=== PATIENT | female | born 1985 | race Hispanic/Latino ===

== ENCOUNTER 2019-07-04 06:51 | Day surgery (SDC) | payer OTHER, SELFPAY ==
[2019-07-02 13:47] LABS: Absolute Lymphocytes (CBC) 2.7 K/uL (0.7-4.9); Basophils % 0.7 % (0-1.3); Hematocrit 38.2 % (36.0-45.0); Lymphocytes % 33.3 % (15.3-44.8); MPV 10.4 fL (7.6-11.3); RBC Red Blood Cell Count 4.26 M/uL (3.86-4.86)
[2019-07-02 13:55] LABS: BUN Blood Urea Nitrogen 8 mg/dL (7-18); Bicarbonate 28 mmol/L (21-32); Glucose Level 87 mg/dL (74-106); Potassium 3.8 mmol/L (3.5-5.1); Sodium Level 141 mmol/L (136-145)
[2019-07-02 14:01] LABS: Albumin 4.2 g/dL (3.4-5.0); Bilirubin Direct 0.2 mg/dL (0-0.2); Bilirubin Total 0.6 mg/dL (0.2-1.0); Protein, Total 7.4 g/dL (6.4-8.2)
[2019-07-04] MEDS ORDERED: ROCURONIUM 50 MG/5 ML VIAL IV ONE (07:03)
[2019-07-04] MEDS ORDERED: LIDOCAINE 2% MPF 5 ML VIAL ONE (07:03)
[2019-07-04] MEDS ORDERED: PROPOFOL 200 MG/20 ML VIAL IV ONE (07:03)
[2019-07-04] MEDS ORDERED: ONDANSETRON 4 MG/2 ML VIAL ONE ×2 (07:03→11:25)
[2019-07-04] MEDS ORDERED: Ringers Lactate 1,000 ML IV ONE ×2 (07:48→10:02)
[2019-07-04] MEDS ORDERED: CEFOXITIN/SWI 1gm 1 GM/10 ML SYR ONE (07:49)
[2019-07-04 07:57] LABS: Specific Gravity >= 1.030 (1.005-1.030)
[2019-07-04] MEDS ORDERED: FENTANYL CITR 100 MCG/2 ML ONE (08:29)
[2019-07-04] MEDS ORDERED: MIDAZOLAM HCL 2 MG/2 ML INJ ONE (08:30)
[2019-07-04] MEDS ORDERED: GLYCOPYRROLATE 0.2 MG/ML SYR ONE (09:17)
[2019-07-04] MEDS ORDERED: NEOSTIGMINE 1 MG/ML -10 ML VIAL ONE (09:18)
[2019-07-04] MEDS: HYDROMORPHONE HCL 1 MG/ML INJ ONE ×4 (09:52→10:10)
[2019-07-04] MEDS: MORPHINE 4 MG/ML SYR ONE ×3 (10:20→10:30)
--- NOTE | 2019-07-04 10:39 | OP ---
Date of Procedure: 07/04/2019 Surgeon: Michael Durant MD Electrocardiogram Technician: KEN Parker. Preoperative Diagnoses: Symptomatic cholelithiasis, umbilical hernia. Postoperative Diagnoses: Symptomatic cholelithiasis, umbilical hernia. Procedure: Laparoscopic cholecystectomy and repair of umbilical hernia. Estimated Blood Loss: Minimal. Specimens: Hernia sac and contents. Findings: As above. Anesthesia: General. Complications: None. Disposition: Patient tolerated the procedure in stable condition, taken to Recovery in good general condition. Procedure In Detail: The patient was brought to the OR and placed in supine position. General anest hesia begun. Patient was prepped and draped in the sterile fashion. Marcaine 0.5% was infiltrated l ocally. A 15-blade was used to make a 2 cm incision over the hernia which was infraumbilical midline . Subcu tissue divided. Hernia sac and contents identified, excised to the edge of the fascia. Kathy roximately, a 1.5 cm defect remained, #1 Vicryl stay suture was placed and then the peritoneal cavity entered. Pneumoperitoneum was established. Three 5 mm trocars placed, 1 in the epigastrium just to the right of midline and 2 in the right subcostal region. Laparoscopy revealed chronic inflammation of the gallbladder consistent with chronic cholecystitis. Fundus retracted superiorly. Infundibulum was identified and retracted inferolaterally. Cystic duct and cystic artery were clearly identified with blunt dissection. Clips placed. Both structures divided. Cautery was used to remove the gall bladder from the liver bed. Bleeding on the liver bed was controlled with cautery. Then, the gallbl adder retrieved through the umbilicus via an EndoCatch bag and wound in the right upper quadrant exam ined. No evidence of bleeding or bile leakage appreciated. Subsequently, all trocars were removed u nder direct vision. Stay sutures were tied to each other to close the hernia defect. Subcu wounds i rrigated, bleeding controlled with cautery. A 3-0 chromic used for subcutaneous tissue and closed th e skin. Sterile dressing was applied. The patient was awakened and taken to Recovery in good genera l condition. Discharge Note: Patient will go to Day Surgery and home when stable. Disposition: Home. Condition: Stable. Discharge Instructions: Resume home medications and diet. Activities as tolerated. No heavy liftin g. Remove outer dressing in 2 days. Shower. Keep wound clean and dry. Follow up in my office in 1 week. Call for appointment. Tylenol No. 3 one tablet p.o. q.4 p.r.n. pain. Incentive spirometry as ordered. Abdominal binder as ordered. LOLITA/MODL Voice ID: [id number] Report ID: [id number]
[2019-07-04] MEDS ORDERED: HYDROCODONE/APAP 7.5/325 MG TAB PO ONE (11:20)
[2019-07-04] MEDS ORDERED: HYDROCODONE/APAP 7.5/325 MG TAB ONE (11:22)
[2019-07-04] MEDS ORDERED: ONDANSETRON 4 MG/2 ML VIAL IV ONE (11:26)
[2019-07-04 12:51] VITALS: BP 107/55; TEMP 96.8; O2SAT 95
== END 2019-07-04 12:35 | disposition home or self-care (01) ==
LOC: OR 06:51
PROVIDERS: ATTEND Surgery
PROC: 0WQF0ZZ Repair Abdominal Wall, Open Approach (ICD-10-PCS; 2019-07-04)
PROC: 0FT44ZZ Resection of Gallbladder, Percutaneous Endoscopic Approach (ICD-10-PCS; principal; 2019-07-04 08:15)
DX: K80.10 Calculus of gallbladder with chronic cholecystitis without obstruction (principal); K42.9 Umbilical hernia without obstruction or gangrene; K21.9 Gastro-esophageal reflux disease without esophagitis; J45.909 Unspecified asthma, uncomplicated; Z88.0 Allergy status to penicillin
CPT/HCPCS: 47562; 49585; 85025; 80048; 36415; 82150; 81025; 80076; 88302; 88304; J2704; J2710; J2250; J3010; J1170 ×2; J2405 ×3

== ENCOUNTER 2019-07-13 07:54 | Emergency (ER) | payer OTHER, SELFPAY ==
[2019-07-13] MEDS ORDERED: MAGNE/ALUM HYDROXD 30 ML UCUP ONE (08:16)
[2019-07-13] MEDS ORDERED: FAMOTIDINE 20 MG/2 ML VIAL IV ONE (08:16)
[2019-07-13] MEDS ORDERED: LIDOCAINE VISCOUS 2% SOLN 15 ML UDC ONE (08:16)
--- NOTE | 2019-07-13 08:52 | EDPHYS ---
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 08:47 The patient presents with abdominal pain in the epigastric area. Onset: The rn symptoms/episode began/occurred yesterday. The symptoms radiate to chest. Associated signs and symptoms: Pertinent positives: nausea, Pertinent negatives: anorexia, blood in stools, fever, shortness of breath. The symptoms are described as burning. Modifying factors: The symptoms are alleviated by belching. Severity of pain: At its worst the pain was mild in the emergency department the pain is unchanged. The patient has experienced similar episodes in the past. Reports has had years of GERD, is supposed to take prevacid, recently scoped with esophageal erosion by Dr. Stroud, just had gallbladder removed Sunday, not taking meds, reports last night began with moderate heart burn, starts in epigastric region, radiated to chest and throat, burning, identical to previous GERD episodes in past, no sob/cough/fever. Improved by belching.. Historical: - Allergies: 08:09 PENICILLINS; hb 08:09 remi; hb - PSHx: 08:09 Cholecystectomy; Hernia repair; hb - Immunization history:: Adult Immunizations up to date. - Social history:: Smoking status: Patient/guardian denies using tobacco. - Ebola Screening: : No symptoms or risks identified at this time. - Family history:: not pertinent. - Hospitalizations: : No recent hospitalization is reported. ROS: 08:47 Constitutional: Negative for fever, chills, and weight loss, Eyes: Negative for injury, rn pain, redness, and discharge, Neck: Negative for injury, pain, and swelling, Cardiovascular: Negative for chest pain, palpitations, and edema, Respiratory: Negative for shortness of breath, cough, wheezing, and pleuritic chest pain, Abdomen/GI: Negative for vomiting, diarrhea, and constipation, MS/Extremity: Negative for injury and deformity, Skin: Negative for injury, rash, and discoloration, Neuro: Negative for headache, weakness, numbness, tingling, and seizure. Exam: 08:47 Constitutional: This is a well developed, well nourished patient who is awake, alert, rn and in no acute distress. Ambulatory to room without difficulty. Head/Face: Normocephalic, atraumatic. ENT: MMM Cardiovascular: Regular rate and rhythm. No pulse deficits. Respiratory: Lungs have equal breath sounds bilaterally, clear to auscultation. No increased work of breathing, no retractions or nasal flaring. Abdomen/GI: soft, mild epigastric tenderness, no rebound MS/ Extremity: Pulses equal, no cyanosis. Neurovascular intact. Full, normal range of motion. Equal circumference. Neuro: Awake and alert, GCS 15, oriented to person, place, time, and situation. Cranial nerves II-XII grossly intact. Motor strength 5/5 in all extremities. Sensory grossly intact. Cerebellar exam normal. Normal gait. 08:47 ECG was reviewed by the Attending Physician. rn Vital Signs: 08:09 BP 137 / 93; Pulse 89; Resp 16; Temp 97.9(TE); Pulse Ox 100% on R/A; Pain 8/10; hb MDM: 08:03 Patient medically screened. rn 08:47 Differential diagnosis: gastritis, gastroesophageal reflux disease. Data reviewed: rn vital signs, nurses notes, EKG, and as a result, I will discharge patient. Counseling: I had a detailed discussion with the patient and/or guardian regarding: the historical points, exam findings, and any diagnostic results supporting the discharge/admit diagnosis, the need for outpatient follow up. 08:52 Special discussion: I discussed with the patient/guardian in detail that at this point rn there is no indication for admission to the hospital. It is understood, however, that if the symptoms persist or worsen the patient needs to return immediately for re-evaluation. Based on the history and exam findings, there is no indication for further emergent testing or inpatient evaluation. I discussed with the patient/guardian the need to see the primary care provider for further evaluation of the symptoms. 07/13 08:14 Order name: IV Start; Complete Time: 08:18 rn 07/13 08:14 Order name: EKG - Nurse/Tech; Complete Time: 08:18 rn 07/13 08:14 Order name: EKG; Complete Time: 08:15 rn EC:47 Rate is 72 beats/min. Rhythm is regular. QRS [place] is Normal. MD interval is normal. QRS rn interval is normal. QT interval is normal. No Q waves. T waves are Normal. No ST changes noted. Clinical impression: NSR w/ Non-specific ST/T Changes. Interpreted by me. Reviewed by me. Administered Medications: 08:30 Drug: GI Cocktail without - (Maalox Suspension 30 ml, Lidocaine Liquid 2 % 15 em ml) Route: PO; 09:00 Follow up: Response: No adverse reaction; Marked relief of symptoms em 08:33 Drug: Pepcid 20 mg Route: IVP; Site: right antecubital; aa5 09:00 Follow up: Response: No adverse reaction; Marked relief of symptoms em Disposition: 07/13/19 08:52 Discharged to Home. Impression: Gastro-esophageal reflux disease with esophagitis. - Condition is Stable. - Discharge Instructions: Food Choices for Gastroesophageal Reflux Disease, Adult, Esophagitis, Gastroesophageal Reflux Disease, Adult. - Medication Reconciliation Form, Thank You Letter, Antibiotic Education, Prescription Opioid Use form. - Follow up: Private Physician; When: As needed; Reason: Recheck today's complaints, Re-evaluation by your physician. - Problem is new. - Symptoms have improved. Signatures: Ronald Rockwell, MANAGER PHARMACY MANAGER PHARMACY Jarad Gómez MD MD rn Calderon, Audri RN RN aa Yuliya Panda RN RN Corrections: (The following items were deleted from the chart) 09:16 08:52 07/13/2019 08:52 Discharged to Home. Impression: Gastro-esophageal reflux disease em with esophagitis. Condition is Stable. Forms are Medication Reconciliation Form, Thank You Letter, Antibiotic Education, Prescription Opioid Use. Follow up: Private Physician; When: As needed; Reason: Recheck today's complaints, Re-evaluation by your physician. Problem is new. Symptoms have improved. rn
--- NOTE | 2019-07-13 08:52 | ER ---
Nurse's Notes [facility] Name: Yadi Jay Age: 34 yrs Sex: Female : 1985 Arrival Date: 07/13/2019 Time: 07:57 Bed 19 Private MD: Michael Durant Diagnosis: Gastro-esophageal reflux disease with esophagitis Presentation: 07/13 08:07 Presenting complaint: Burning epigastric pain since last night. Pt had lap batool + hb hernia repair by Dr. Durant on 07/04. Transition of care: patient was not received from another setting of care. Onset of symptoms was July 12, 2019. Risk Assessment: Do you want to hurt yourself or someone else? Patient reports no desire to harm self or others. Initial Sepsis Screen: Does the patient meet any 2 criteria? No. Patient's initial sepsis screen is negative. Does the patient have a suspected source of infection? No. Patient's initial sepsis screen is negative. Care prior to arrival: None. 08:07 Method Of Arrival: Ambulatory hb 08:07 Acuity: ALVAREZ 3 hb Historical: - Allergies: 08:09 PENICILLINS; hb 08:09 remi; hb - PSHx: 08:09 Cholecystectomy; Hernia repair; hb - Immunization history:: Adult Immunizations up to date. - Social history:: Smoking status: Patient/guardian denies using tobacco. - Ebola Screening: : No symptoms or risks identified at this time. - Family history:: not pertinent. - Hospitalizations: : No recent hospitalization is reported. Screenin:20 Abuse screen: Denies threats or abuse. Nutritional screening: No deficits noted. em Tuberculosis screening: No symptoms or risk factors identified. Fall Risk None identified. Assessment: 08:20 General: Appears in no apparent distress. comfortable, Behavior is calm, cooperative, em Denies fever. Pain: Complains of pain in epigastric area Pain does not radiate. Pain currently is 0 out of 10 on a pain scale. Quality of pain is described as burning. Neuro: Level of Consciousness is awake, alert, obeys commands, Oriented to person, place, time, situation, Appropriate for age. Cardiovascular: Capillary refill < 3 seconds Patient's skin is warm and dry. Respiratory: Airway is patent Respiratory effort is even, unlabored, Respiratory pattern is regular, symmetrical. GI: Abdomen is flat, Bowel sounds present X 4 quads. Reports indigestion, nausea, Patient currently denies diarrhea, nausea. Derm: Skin is intact, is healthy with good turgor, Skin is pink, warm \T\ dry. Musculoskeletal: Capillary refill < 3 seconds, Range of motion: intact in all extremities. 08:30 Reassessment: i agree with previous assessment. hb Vital Signs: 08:09 BP 137 / 93; Pulse 89; Resp 16; Temp 97.9(TE); Pulse Ox 100% on R/A; Pain 8/10; hb ED Course: 07:57 Patient arrived in ED. ag5 07:58 Michael Durant MD is Private Physician. ag5 08:03 Jarad Gómez MD is Attending Physician. rn 08:03 Ronald Rockwell LVN is Primary Nurse. em 08:08 Triage completed. hb 08:09 Arm band placed on. hb 08:20 Bed in low position. Call light in reach. Pulse ox on. NIBP on. em 08:30 Inserted saline lock: 22 gauge in right antecubital area, using aseptic technique. em 09:11 No provider procedures requiring assistance completed. IV discontinued, intact, em bleeding controlled, No redness/swelling at site. Pressure dressing applied. Administered Medications: 08:30 Drug: GI Cocktail without - (Maalox Suspension 30 ml, Lidocaine Liquid 2 % 15 em ml) Route: PO; 09:00 Follow up: Response: No adverse reaction; Marked relief of symptoms em 08:33 Drug: Pepcid 20 mg Route: IVP; Site: right antecubital; aa5 09:00 Follow up: Response: No adverse reaction; Marked relief of symptoms em Outcome: 08:52 Discharge ordered by . rn 09:11 Discharged to home ambulatory. em 09:11 Condition: good 09:11 Discharge instructions given to patient, Instructed on discharge instructions, follow up and referral plans. Demonstrated understanding of instructions, follow-up care. 09:16 Patient left the ED. em Signatures: Ronald Rockwell LVN LVN em Jarad Gómez MD MD rn Calderon, Audri, RN RN aa5 Yuliya Panda RN RN Kenny Holt [facility]
[2019-07-13 09:23] VITALS: BP 137/93; TEMP 97.9; O2SAT 100
--- NOTE | 2019-07-14 09:51 | EKG ---
Test Date: 2019-07-13 Test Time: 08:23:38 Housekeeping Lead: GALILEO MEASUREMENT RESULTS: Intervals: Rate: 72 DC: 162 QRSD: 94 QT: 400 QTc: 438 Evans: P: 51 DC: 162 QRS: 50 T: 39 INTERPRETIVE STATEMENTS: Normal sinus rhythm normal ECG No previous ECG available for comparison Electronically Signed On 07-14-19 09:50:34 CDT by Eric Reyes
== END 2019-07-13 09:16 | disposition home or self-care (01) ==
LOC: ER 07:54
DX: K21.9 Gastro-esophageal reflux disease without esophagitis (principal); Z88.0 Allergy status to penicillin
CPT/HCPCS: 93005; 96374; 99283